=== PATIENT | female | born 1950 | race Caucasian/White ===

== ENCOUNTER 2019-09-16 11:50 | Emergency (ER) | payer BC ==
--- NOTE | 2019-09-16 13:04 | UC ---
Lower Extremity/Ankle HPI - HPI Summary HPI Summary: 69-year-old female presents with complaints of right foot pain, swelling, and bruising after accidentally kicking a rolled up carpet in her home 3 days ago. States she has been unable to walk or bear weight on the foot until today. She is currently using crutches and doing partial weightbearing. She has been taking ibuprofen with good management of the pain. Reports persistent bruising and swelling of the foot despite icing and elevation. Patient has been using a postop shoe from a previous injury. Denies any numbness or tingling. - History of Current Complaint Stated Complaint: RT FOOT INJURY Time Seen by Provider: 09/16/19 12:52 Hx Obtained From: Patient Pain Intensity: 7 - Allergies/Home Medications Allergies/Adverse Reactions: Allergies Allergy/AdvReac Type Severity Reaction Status Date / Time No Known Allergies Allergy Verified 09/16/19 12:54 Home Medications: Home Medications Ibuprofen TAB* [Motrin TAB* 600 MG] 600 mg PO Q6H PRN 09/16/19 [History Confirmed 09/16/19] PMH/Surg Hx/FS Hx/Imm Hx Previously Healthy: Yes - Denies significant PMH - Surgical History Surgical History: None - Family History Known Family History: Positive: Non-Contributory - Social History Occupation: Employed Full-time Lives: With Family Alcohol Use: None Substance Use Type: None Smoking Status (MU): Former Smoker Type: eCigarettes Amount Used/How Often: daily vapes Length of Time of Smoking/Using Tobacco: 45 years When Did the Patient Quit Smoking/Using Tobacco: quit cigarettes 2013 Review of Systems All Other Systems Reviewed And Are Negative: Yes Constitutional: Positive: Negative Skin: Positive: Bruising Respiratory: Positive: Negative Cardiovascular: Positive: Negative Gastrointestinal: Positive: Negative Genitourinary: Positive: Negative Motor: Negative: Weakness Neurovascular: Negative: Decreased Sensation Musculoskeletal: Positive: Edema, Other: - See HPI. Negative: Decreased ROM Neurological: Positive: Negative Is Patient Immunocompromised?: No Physical Exam - Summary Physical Exam Summary: GENERAL APPEARANCE: Well developed, well nourished, alert and cooperative, and appears to be in no acute distress. CARDIAC: Normal S1 and S2. No S3, S4 or murmurs. Rhythm is regular. There is no peripheral edema, cyanosis or pallor. Extremities are warm and well perfused. Capillary refill is less than 2 seconds. Peripheral pulses intact. LUNGS: Clear to auscultation without rales, rhonchi, wheezing or diminished breath sounds. ABDOMEN: Positive bowel sounds. Soft, nondistended, nontender. No guarding or rebound. No masses or hepatosplenomegally. MUSKULOSKELETAL: ROM intact to all extremities. No joint erythema or tenderness. Normal muscular development. Normal gait. EXTREMITIES: Tenderness across the mid dorsal right foot. Moderate edema to the foot. Significant bruising that involves the entire dorsal foot from base of toes to distal ankle. Ankle non-tender with full ROM. Circulation and sensation intact. SKIN: Skin normal color, texture and turgor. Triage Information Reviewed: Yes Vital Signs: Initial Vital Signs Temp 98.0 F 09/16/19 12:53 Pulse 85 09/16/19 12:53 Resp 16 09/16/19 12:53 BP 152/72 09/16/19 12:53 Pulse Ox 100 09/16/19 12:53 Vital Signs Reviewed: Yes Images Front/Back of Body, Lg ([place]): 1 - Approximately 2 cm superficial circular ulceration of the medial right lower leg with granulation tissue within the bed of the wound Diagnostics - Radiology No standard instances Radiology Interpretation Completed By: Radiologist Summary of Radiographic Findings: Order Information: FOOT RIGHT 3+ VWS. INDICATION: Right foot injury. TECHNIQUE: 3 views of the right foot were obtained. FINDINGS: There is soft tissue swelling about the dorsal midfoot. There is an obliquely oriented fracture extending through the base of the second metatarsal. Ossific debris is seen interposed within the base of the second metatarsal and medial cuneiform. There is mild lateral displacement of the first through fifth metatarsals. IMPRESSION: HOMOLATERAL LISFRANC FRACTURE/ DISLOCATION PATTERN. Lower Extremity Course/Dx - Course Course Of Treatment: 69-year-old female presents with complaints of right foot pain, swelling, and bruising after accidentally kicking a rolled up carpet in her home 3 days ago. States she has been unable to walk or bear weight on the foot until today. She is currently using crutches and doing partial weightbearing. She has been taking ibuprofen with good management of the pain. Reports persistent bruising and swelling of the foot despite icing and elevation. Patient has been using a postop shoe from a previous injury. Denies any numbness or tingling. Afebrile. Vital signs stable. Exam revealed tenderness across the mid dorsal right foot. Moderate edema to the foot. Significant bruising that involves the entire dorsal foot from base of toes to distal ankle. Ankle non-tender with full ROM. Circulation and sensation intact. X-ray showed an obliquely oriented fracture extending through the base of the second metatarsal, ossific debris is seen interposed within the base of the second metatarsal and medial cuneiform, and mild lateral displacement of the first through fifth metatarsals consistent with a Lisfranc fracture/dislocation pattern. - Differential Dx/Diagnosis Differential Diagnosis/HQI/PQRI: Contusion, Dislocation, Fracture (Closed), Sprain, Strain Discharge ED - Sign-Out/Discharge Documenting (check all that apply): Patient Departure All imaging exams completed and their final reports reviewed: Yes - Discharge Plan Condition: Stable Disposition: HOME Patient Education Materials: Foot Fracture in Adults (ED), Crutch Instructions (ED), Splint Care (ED) Referrals: No Primary Care Phys,NOPCP [Primary Care Provider] - Martin Hood MD [Medical Doctor] - 1 Day (You have an appointment scheduled for 09/17/2019 at 1:30 pm. Please arrive 15 ahead of your scheduled appointment. ) Additional Instructions: The x-ray performed in the clinic today showed evidence of a Lisfranc fracture/ dislocation of the right foot. Rest the foot as much as possible. You need to remain non-weight bearing on this foot. Use your crutches for ambulation. Apply ice to the affected area for 15-20 minutes at least 4 times a day to help with the pain and swelling. Elevate the foot to help reduce swelling. Take acetaminophen (Tylenol) or ibuprofen (Advil, Motrin) according to directions as needed for pain. Follow up with orthopedic surgery tomorrow at 1:30 pm. Please arrive 15 minutes ahead of your scheduled appointment. Seek immediate medical attention if you have severe pain not managed with pain medication, you are unable to walk or bear any weight, develop numbness or tingling in the foot or toes, or have any worsening of symptoms. - Billing Disposition and Condition Condition: STABLE Disposition: Home
[2019-09-16] MEDS ORDERED: Mupirocin 2% OINT* TUBE TOPICAL ONE (14:12)
== END 2019-09-16 15:44 | disposition home or self-care (01) ==
LOC: UCCORT 11:50
DX: S90.31XA Contusion of right foot, initial encounter (principal); L97.519 Non-pressure chronic ulcer of other part of right foot with unspecified severity; L92.8 Other granulomatous disorders of the skin and subcutaneous tissue; Z87.891 Personal history of nicotine dependence; W22.09XA Striking against other stationary object, initial encounter; Y92.009 Unspecified place in unspecified non-institutional (private) residence as the place of occurrence of the external cause
CPT/HCPCS: 28470; 99203; G0463